=== PATIENT | male | born 1980 | race Caucasian/White ===

== ENCOUNTER 2021-07-09 09:58 | Emergency (ER) | payer OTHER ==
[~2021-07-09] VITALS: Ht 177.8 cm; Wt 80.7 kg
--- OUTSIDE RECORDS SUMMARY | 2021-07-09 18:02 | XMS ---
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 Hari has no Care Guidelines for this patient. Marley VISIT COUNT (12 MO.) 1 Cesario Rothman [address] [place], [place] [address] [facility]. TOTAL 2 NOTE: Visits indicate total known visits. ED/C VISIT TRACKING (12 MO.) 07/09/2021 10:00 RENATO Tabares OR TYPE: Emergency COMPLAINT: - FACIAL, HEAD, L SIDE INJURY 07/09/2021 00:00 Legdeborah Stephan Miya OR TYPE: Emergency COMPLAINT: - LV Head Injury (Trauma Tx) DIAGNOSES: - LV Head Injury (Trauma Tx) INPATIENT VISIT TRACKING (12 MO.) No inpatient visits to display in this time frame [email or web address]
== END 2021-07-09 18:01 | disposition short-term general hospital (02) ==
LOC: ED 09:58
DX: S32.402A Unspecified fracture of left acetabulum, initial encounter for closed fracture (principal); S02.40CA Maxillary fracture, right side, initial encounter for closed fracture; S22.42XA Multiple fractures of ribs, left side, initial encounter for closed fracture; S32.302A Unspecified fracture of left ilium, initial encounter for closed fracture; Z88.0 Allergy status to penicillin; W22.8XXA Striking against or struck by other objects, initial encounter
CPT/HCPCS: 36415; 70450; 70486; 71101; 73502; 74177; 80048; 85025; 96375; 99285-25; J1170; J2405; J7030